=== PATIENT | female | born 1990 | race American Indian/Alaskan Native ===

== ENCOUNTER 2020-06-09 12:33 | Emergency (ER) | payer OTHER, MEDICAID ==
--- NOTE | 2020-06-09 13:19 | EDM.PDOC ---
ED HPI GENERAL MEDICAL PROBLEM - General Chief Complaint: Drug or Alcohol Abuse Stated Complaint: NEEDLE IN R ARM Time Seen by Provider: 06/09/20 12:51 Source of Information: Reports: Patient History Limitations: Reports: No Limitations - History of Present Illness INITIAL COMMENTS - FREE TEXT/NARRATIVE: The patient presents with a needle in the right arm. She said this happened early this morning at about 1am. She was injecting fentanyl in her arm. She admits to being addicted and she is going to treatment on Friday. She has some pain to her upper right arm. She has no fever or chills. Onset: Sudden Duration: Hour(s): Location: Reports: Upper Extremity, Right Quality: Reports: Ache Severity: Mild Improves with: Reports: None Worsens with: Reports: None Context: Reports: Activity Associated Symptoms: Reports: No Other Symptoms - Related Data Allergies Allergy/AdvReac Type Severity Reaction Status Date / Time acetaminophen Allergy Severe Anaphylactic Verified 06/09/20 12:54 [From Darvocet-N] Shock propoxyphene Allergy Severe Anaphylactic Verified 06/09/20 12:54 [From Darvocet-N] Shock Home Meds: Home Meds QUEtiapine Fumarate [Seroquel Xr] 100 mg PO BEDTIME PRN 06/09/20 [History] QUEtiapine [SEROquel] 100 mg PO BEDTIME #30 tablet 06/09/20 [Rx] cephALEXin [Keflex] 500 mg PO Q6H #40 cap 06/09/20 [Rx] ED ROS GENERAL - Review of Systems Review Of Systems: See Below Constitutional: Reports: No Symptoms HEENT: Reports: No Symptoms Respiratory: Reports: No Symptoms Cardiovascular: Reports: No Symptoms Endocrine: Reports: No Symptoms GI/Abdominal: Reports: No Symptoms : Reports: No Symptoms Musculoskeletal: Reports: Other (Right arm has needle in AC area) - Physical Exam Exam: See Below Exam Limited By: No Limitations General Appearance: Alert, No Apparent Distress Ears: Normal External Exam Nose: Normal Inspection Head Exam: Atraumatic, Normocephalic Neck: Normal Inspection Respiratory/Chest: No Respiratory Distress Extremities: Other (Right AC has a scar to that area with no edema. Good sensation and pulses distally) Course - Vital Signs Last Recorded V/S: Last Vital Signs Temp 97.8 F 06/09/20 12:49 Pulse 100 06/09/20 12:49 Resp 20 06/09/20 12:49 BP 138/90 06/09/20 12:49 Pulse Ox 99 06/09/20 12:49 - Orders/Labs/Meds Orders: Active Orders 24 hr Category Date Time Status Influenza Vaccine Charge [RC] .DISCHARGE Care 06/09/20 13:21 Active Elbow 2V Rt [CR] Stat Exams 06/09/20 13:06 Taken Meds: Medications Discontinued Medications Generic Name Dose Route Start Last Admin Trade Name Christiano PRN Reason Stop Dose Admin Influenza Virus Vaccine 60 mcg 06/09/20 13:30 Fluzone Quad Syringe IM 06/09/20 13:31 .ONCE ONE - Re-Assessments/Exams Free Text/Narrative Re-Assessment/Exam: 06/09/20 14:22 I ordered an x-ray and the needle was still in her arm. It appears to be a very small gauge like an insulin needle. I also did an US and it appears the needle may be in the vein. She did say she did get some blood back when she was finding the vein. I could not find the end with tweezers and a magnifying glass. I called out general surgeon cloth seconds sorter and she said to just leave it and cover her with antibiotics and if it festers and comes out more then it can be removed. It will cause more harm going after it then the damage it is causing now. I will get her on some antibiotics. Maricruz my social services specialist came to talk to the patient and she gave her some resources before and after she goes to treatment. 06/09/20 14:25 The patient also asked if I could refill some seroquil. I will do that. Departure - Departure Time of Disposition: 14:25 Disposition: Home, Self-Care 01 Condition: Good Clinical Impression: Foreign body (FB) in soft tissue - Discharge Information *PRESCRIPTION DRUG MONITORING PROGRAM REVIEWED*: Not Applicable *COPY OF PRESCRIPTION DRUG MONITORING REPORT IN PATIENT JACKY: Not Applicable Prescriptions: cephALEXin [Keflex] 500 mg PO Q6H #40 cap QUEtiapine [SEROquel] 100 mg PO BEDTIME #30 tablet Referrals: PCP,None [Primary Care Provider] - Opal Dove MD [Physician] - 1 Week Forms: ED Department Discharge Additional Instructions: Take the keflex 4 times per day for 10 days. Take the seroquel nightly. Please return if you are worse. If the needle comes out more and please return to have it pulled out. Sepsis Event Note (ED) - Evaluation Sepsis Screening Result: No Definite Risk - Focused Exam Vital Signs: Vital Signs Temp Pulse Resp BP Pulse Ox 06/09/20 12:49 97.8 F 100 20 138/90 99 - My Orders Last 24 Hours: My Active Orders 06/09/20 13:06 Elbow 2V Rt [CR] Stat 06/09/20 13:21 Influenza Vaccine Charge [RC] .DISCHARGE - Assessment/Plan Last 24 Hours: My Active Orders 06/09/20 13:06 Elbow 2V Rt [CR] Stat 06/09/20 13:21 Influenza Vaccine Charge [RC] .DISCHARGE
[2020-06-09] MEDS ORDERED: FLU VACC QS2020-21(6MOS UP)/PF 60 MCG/0.5 ML SYRINGE IM ONE (13:30)
--- NOTE | 2020-06-10 10:45 | CR ---
Right elbow: 2 views of the right elbow were obtained. Comparison: No previous study. Small metallic foreign body projected within the anterior soft tissues at the level of the elbow. This has a length of approximately 6 mm. No fracture or other bony abnormality is seen. No other soft tissue abnormality is appreciated. Impression: 1. Metallic foreign object within the anterior soft tissues of the elbow compatible with broken needle. 2. No additional abnormality is seen. Diagnostic code #3
== END 2020-06-09 15:15 | disposition home or self-care (01) ==
LOC: JD.ED 12:33
DX: S40.851A Superficial foreign body of right upper arm, initial encounter (principal); Z88.6 Allergy status to analgesic agent; Z79.899 Other long term (current) drug therapy; W45.8XXA Other foreign body or object entering through skin, initial encounter
CPT/HCPCS: 73070-26-RT; 73070-RT; 99284; 99284-25

== ENCOUNTER 2023-12-23 12:42 | Emergency (ER) | payer OTHER, MEDICAID | END 2023-12-23 13:04 | disposition left against medical advice (07) | LOC: JD.ED 12:42 | DX: Z53.21 Procedure and treatment not carried out due to patient leaving prior to being seen by health care provider (principal) ==

== ENCOUNTER 2024-05-28 10:12 | Emergency (ER) | payer MEDICAID, OTHER ==
[2024-05-28] MEDS ORDERED: Iopamidol 612 MG/ML 100 ML Bottle IVPUSH ONE (10:29)
[2024-05-28] MEDS ORDERED: Sodium Chloride 0.9% 10 ML Syringe FLUSH PRN (10:29)
[2024-05-28] MEDS: HYDROmorphone 0.5 MG/0.5 ML Syringe IVPUSH ONE (10:42)
[2024-05-28 10:49] LABS: BASOPHILS ABSOLUTE AUTO 0.1 K/mm3 (0.0-0.2); BASOPHILS PERCENT AUTO 0.6 % (0.0-1.0); EOSINOPHILS ABSOLUTE AUTO 0.1 K/mm3 (0.0-0.4); EOSINOPHILS PERCENT AUTO 1.3 % (0.0-6.0); HEMATOCRIT 47.8 % (37.0-47.0); HEMOGLOBIN 15.6 gm/dl (12.0-16.0); IMMATURE GRAN ABSOLUTE AUTO 0.02 K/mm3 (0.00-0.05); IMMATURE GRAN PERCENT AUTO 0.2 % (0.0-0.4); LYMPHOCYTES ABSOLUTE AUTO 2.5 K/mm3 (1.0-4.8); LYMPHOCYTES PERCENT AUTO 29.9 % (24.0-44.0); MEAN CORPUSCULAR HEMOGLOBIN 28.6 pg (28.0-32.0); MEAN CORPUSCULAR HGB CONC 32.6 g/dl (32.0-36.0); MEAN CORPUSCULAR VOLUME 87.5 fl (83.0-99.0); MEAN PLATELET VOLUME 8.5 fl (9.4-12.3); MONOCYTES ABSOLUTE AUTO 0.4 K/mm3 (0.0-0.8); MONOCYTES PERCENT AUTO 4.7 % (0.0-8.0); NEUTROPHILS ABSOLUTE AUTO 5.3 K/mm3 (1.8-7.7); NEUTROPHILS PERCENT AUTO 63.3 % (41.0-71.0); PLATELET COUNT,PLT 371 K/mm3 (150-400); RED BLOOD CELL COUNT 5.46 M/mm3 (4.10-5.30); WHITE BLOOD CELL COUNT,WBC 8.36 K/mm3 (3.9-11.3)
[2024-05-28] MEDS: Iopamidol 612 MG/ML 30 ML SDV IVPUSH ONE (10:58)
[2024-05-28] MEDS: Sodium Chloride 0.9% 10 ML Syringe FLUSH PRN (10:59)
[2024-05-28 11:05] LABS: INR 0.97; PROTHROMBIN TIME 10.3 SECONDS (9.7-12.0)
[2024-05-28 11:15] LABS: A/G RATIO 0.8 (1-2); ALANINE AMINOTRANSFERASE,ALT 87 U/L (14-59); ALBUMIN 3.6 g/dl (3.4-5.0); ALKALINE PHOSPHATASE 66 U/L (46-116); ANION GAP 10.1 (5-15); ASPARTATE AMNIOTRANSFERASE,AST 56 U/L (15-37); BILIRUBIN TOTAL 0.2 mg/dL (0.2-1.0); BLOOD UREA NITROGEN,BUN 6 mg/dL (7-18); BUN/CREATININE RATIO 8.6 (14-18); CALCIUM 9.1 mg/dL (8.5-10.1); CARBON DIOXIDE,CO2 29 mEq/L (21-32); CHLORIDE,CL 107 mEq/L (98-107); CREATININE 0.7 mg/dL (0.55-1.02); ESTIMATED GFR 117 mL/min (>60); ETHANOL BLOOD MEDICAL 0.04 gm% (0.00); GLUCOSE RANDOM 79 mg/dL (70-99); POTASSIUM,K 4.1 mEq/L (3.5-5.1); PROTEIN TOTAL,TP 8.3 g/dl (6.4-8.2); SODIUM,NA 142 mEq/L (136-145)
[2024-05-28 11:32] LABS: HCG QUALITATIVE,SERUM NEGATIVE (NEGATIVE); PRO B-TYPE NATRIUR PEPT,BNPPRO 22 pg/mL (0-125)
== END 2024-05-28 12:10 | disposition home or self-care (01) ==
LOC: JD.ED 10:12
DX: S09.90XA Unspecified injury of head, initial encounter (principal); S20.219A Contusion of unspecified front wall of thorax, initial encounter; F10.120 Alcohol abuse with intoxication, uncomplicated; Z88.6 Allergy status to analgesic agent; Z88.8 Allergy status to other drugs, medicaments and biological substances; Z79.899 Other long term (current) drug therapy; V89.2XXA Person injured in unspecified motor-vehicle accident, traffic, initial encounter; Y90.0 Blood alcohol level of less than 20 mg/100 ml
CPT/HCPCS: 36415; 70450; 70450-26; 71045; 71045-26; 71260; 71260-26; 72125; 72125-26; 72128; 72128-26; 74177; 74177-26; 80053; 80307; 83880; 84703; 85025; 85610; 96374; 99283; 99284-25; Q9967